=== PATIENT | female | born 1980 | race African-American/Black ===

== ENCOUNTER 2021-02-20 04:05 | Emergency (ER) | payer OTHER ==
[2021-02-20 05:02] VITALS: BP 129/88; PULSE 94; TEMP 98.7; BMI 39.4
[2021-02-20] MEDS ORDERED: ASPIRIN 81 MG CHEWABLE TABLETS PO ONE (05:35)
[2021-02-20] MEDS ORDERED: FAMOTIDINE 10 MG TABLET PO ONE (07:18)
[2021-02-20] MEDS ORDERED: MAG HYDROX/AL HYDROX/SIMETH 30 ML UNIT-DOSE CUP PO ONE (07:18)
[2021-02-20 07:24] LABS: BASO % 0.5 % (0-2.0); EOS % 0.4 % (0-4.5); HEMATOCRIT 32.8 % (32.4-45.2); HEMOGLOBIN 10.1 GM/dL (10.7-15.3); LYMPH % 15.1 % (8-40); MCH 22.4 pg (25.7-33.7); MCHC 30.9 g/dl (32.0-36.0); MEAN CELL VOLUME 72.4 fl (80-96); MEAN PLT VOLUME 9.8 fl (7.5-11.1); MONO % 9.8 % (3.8-10.2); NEUT % 74.2 % (42.8-82.8); PLATELET COUNT 243 10^3/uL (134-434); RBC 4.53 M/mm3 (3.60-5.2); RDW 17.8 % (11.6-15.6); WHITE BLOOD COUNT 7.4 K/mm3 (4.0-10.0)
[2021-02-20 07:38] LABS: CHLORIDE 107 mmol/L (98-107); SODIUM 141 mmol/L (136-145)
[2021-02-20 07:42] LABS: ALBUMIN 3.8 g/dl (3.4-5.0); ANION GAP 6 MMOL/L (8-16); BLOOD UREA NITROGEN 9.7 mg/dL (7-18); CO2 28 mmol/L (21-32); GLUCOSE,RANDOM 97 mg/dL (74-106)
[2021-02-20 07:45] LABS: CREATININE 0.7 mg/dL (0.55-1.3); SGOT/AST 16 U/L (15-37); SGPT/ALT 16 U/L (13-61)
[2021-02-20 07:47] LABS: BILIRUBIN,TOTAL 0.4 mg/dL (0.2-1); TOT PROT 7.4 g/dl (6.4-8.2)
[2021-02-20 07:48] LABS: ALK PHOS 59 U/L (45-117)
[2021-02-20] MEDS ORDERED: FAMOTIDINE 10 MG TABLET ONE (07:52)
[2021-02-20] MEDS ORDERED: MAG HYDROX/AL HYDROX/SIMETH 30 ML UNIT-DOSE CUP ONE (07:52)
== END 2021-02-20 08:40 | disposition left against medical advice (07) ==
LOC: JER 04:05
DX: R07.9 Chest pain, unspecified (principal)
CPT/HCPCS: 36415; 71046-TC-FY; 80053; 82550; 84484; 84703; 85025; 93005; 93010; 99285-25; C9803; U0003; U0005